=== PATIENT | female | born 1960 | race Caucasian/White ===

== ENCOUNTER 2018-09-21 09:54 | Inpatient (IN) | payer BC ==
[~2018-09-21 09:54] MED LIST: Iopamidol 370 76% 100 ML VIAL ONE
[2018-09-21 10:20] LABS: #Basophils 0.1 thou/uL (0.0-0.2); #Eosinphils 0.1 thou/uL (0.0-0.7); #Lymphocytes 1.7 thou/uL (1.20-3.40); #Monocytes 0.5 thou/uL (0.11-0.59); #Neutrophils 3.2 thou/uL (1.40-6.50); %Basophils 1.2 % (0.0-1.0); %Eosinophils 1.7 % (0.0-10.0); %Lymphocytes 31.1 % (21.0-51.0); %Monocytes 8.3 % (0.0-10.0); %Neutrophils 57.7 % (42.0-75.0); Hemoglobin 13.9 g/dL (12.0-16.0); Mean Corpuscular HGB CONC 33.4 g/dL (32.0-36.0); Mean Corpuscular Hemoglobin 29.3 pg (27.0-31.0); Mean Corpuscular Volume 87.7 fL (78.0-98.0); Mean Platelet Volume 7.9 fL (7.4-10.4); Platelet Count 233 thou/uL (130-400); RBC Distribution Width 11.7 % (11.5-14.5); Red Blood Cell (RBC) Count 4.76 mill/uL (4.20-5.40); White Blood Cell (WBC) Count 5.5 thou/uL (4.8-10.8)
[2018-09-21 10:32] LABS: ALT (SGPT) 19 U/L (8-55); AST (SGOT) 19 U/L (5-34); Albumin 4.7 g/dL (3.5-5.0); Alkaline Phosphatase 58 U/L (40-150); Anion Gap 14 mmol/L (10-20); BUN (Urea Nitrogen) 17 mg/dL (9.8-20.1); Bilirubin, Total 0.6 mg/dL (0.2-1.2); Calc. Creatinine Clearance 0 mL/min (70-130); Calcium 9.3 mg/dL (7.8-10.44); Carbon Dioxide 24 mmol/L (22-29); Chloride 106 mmol/L (98-107); Estimated GFR-MDRD 83; Globulin 3.2 g/dL (2.4-3.5); Glucose 94 mg/dL (70-105); Lipase 25 U/L (8-78); Potassium 4.1 mmol/L (3.5-5.1); Protein, Total 7.9 g/dL (6.0-8.3); Sodium 140 mmol/L (136-145)
[2018-09-21 11:02] LABS: PTT 30.5 SEC (22.9-36.1); Prothrombin Time 12.8 SEC (12.0-14.7)
--- NOTE | 2018-09-21 11:08 | CT ---
CT ABDOMEN AND PELVIS WITHOUT CONTRAST: History: Abdominal pain. Comparison: None. FINDINGS: Lung bases are clear. No pericardial effusion. There is a diverticulum in the second portion of the duodenum. Normal proximal small bowel rotation. No nephroureterolithiasis or hydroureteronephrosis. No secondary evidence of a recently passed stone. There has been subtle enlargement and inflammation surrounding the inferior mesenteric artery, axial image 50, with punctate internal increased density. This may reflect an inferior mesenteric artery th rombosis. This evaluation is limited without intravenous contrast. No evidence for acute diverticulitis. IMPRESSION: 1. No evidence for acute diverticulitis. 2. No nephroureterolithiasis or hydroureteronephrosis. No secondary evidence of recently passed stone . 3. Focal enlargement with subtle increased density within the inferior mesenteric artery, axial image 50, with adjacent inflammation may represent inferior mesenteric artery thrombosis although evaluati on limited without intravenous contrast. Arteritis is also a possibility. CODE: ROSI POS: ROSALBA
[2018-09-21 11:37] LABS: Bilirubin Negative (Negative); Blood, Urine Negative (Negative); Clarity Clear (Clear); Glucose, Urine (Dipstick) Negative (Negative); Leukocyte Negative (Negative); Nitrite Negative (Negative); Protein, Urine (Dipstick) Negative (Neg-Trace); Specific Gravity, Urine 1.015 (1.005-1.030); Urobilinogen 0.2 mg/dL (0.2-1.0)
[2018-09-21 13:36] VITALS: BMI 27.3
[2018-09-21] MEDS ORDERED: Ondansetron ODT 4 MG TAB SL PRN (13:55)
[2018-09-21] MEDS ORDERED: Sodium Chloride 0.9% 1,000 ML IV SCH (13:55)
[2018-09-21] MEDS ORDERED: HYDROcodone/Acetaminophen 7.5/325 mg Tablet PO PRN (15:35)
--- NOTE | 2018-09-21 15:42 | CON ---
DATE OF CONSULTATION: 09/21/2018 REASON FOR CONSULTATION: Abdominal pain. CONSULTING PHYSICIAN: Dr. Syed Marrero. HISTORY OF PRESENT ILLNESS: The patient is a 57-year-old female with past medical history of hyperte nsion, diverticulitis, depression and possible TIAs presenting with complaints of abdominal pain. Sh e states that she was in her usual state of health until approximately 1 week ago when she experience d the acute onset of lower abdominal pain located primarily in the left lower quadrant, right lower q uadrant and suprapubic regions. The pain was characterized as a constant aching type sensation. It would radiate to the left and right flank, and reaches severity of approximately 8/10. The pain was worse with initiation of urination and/or having a bowel movement, but would ultimately get better af ter having with either urinating or having a bowel movement. It would also get minimally better with the use of pain medications. During this time period, she has been having approximately 1 soft/oly d bowel movement per day with no difficulty with defecation. Given the increased severity of this pa in, it prompted her to seek healthcare assistance at [facility]. She was ultimate ly diagnosed with diverticulitis and given a prescription for both ciprofloxacin and Flagyl. With th e administration of these medications, they did not provide any symptom relief that ultimately nika t her to the [facility]. Associated symptoms with her abdominal pain include subjective chills an d darker colored stools (but not black). She currently denies any nausea, vomiting, fever, odynophag ia, dysphagia, change in bowel habits, GI bleeding, sudden change in vision, increased joint pains or new rashes. Of note, the patient states that this occurred approximately 1 month ago, but was fairl y self-limiting and resolved spontaneously without intervention. Also, of note, the patient was diagnosed with TIAs approximately 4-5 years ago when she experienced d ecreased sensation and inability to move limbs on one side of her body. She underwent extensive work up at that time with no clear etiology for these changes elucidated. REVIEW OF SYSTEMS: A 10-category review of systems was obtained with all responses negative except f or the pertinent positives as listed in the HPI. PAST MEDICAL HISTORY: As per HPI. PAST SURGICAL HISTORY: Hysterectomy, appendectomy, x2, breast augmentation. FAMILY HISTORY: Father diagnosed with colon cancer in his late 60s. Maternal aunts also diagnosed w ith colon cancer in the past. SOCIAL HISTORY: She denies any tobacco, alcohol or illicit drug use. OUTPATIENT MEDICATIONS: Lisinopril and sertraline. ALLERGIES: No known drug allergies. PHYSICAL EXAMINATION: VITAL SIGNS: Temperature 98, pulse 61, blood pressure 145/85, respiratory rate 16, satting 97% on ro om air. GENERAL: The patient was lying in bed in no acute distress. Alert and oriented x4. NECK: Supple. No JVD noted. No supraclavicular or cervical chain lymphadenopathy noted either. CARDIOVASCULAR: Regular rate and rhythm with no discernible murmurs, gallops or rubs. RESPIRATORY: Clear to auscultation bilaterally with no discernible wheezes or rales. ABDOMEN: Normoactive bowel sounds, soft, nondistended. Tenderness to palpation in the right upper q uadrant and right lower quadrant, suprapubic and left lower quadrants. EXTREMITIES: No cyanosis, clubbing or edema. LABORATORY DATA: CBC with white blood cell count of 5.5, hemoglobin 13.9, hematocrit 41.8 and platel ets 233. INR 1.0. Chemistry with sodium of 140, potassium 4.1, chloride 106, CO2 24, BUN 17, creati nine 0.72, glucose 94, AST 19, ALT 19, alkaline phosphatase 58, total bilirubin 0.6, albumin 4.7 and lipase 25. Urinalysis negative for infection. IMAGING DATA: CT of the abdomen and pelvis was obtained on 09/21/2018 which showed subtle enlargemen t and inflammation surrounding the inferior mesenteric artery with punctate internal increased densit y which may reflect an inferior mesenteric artery thrombosis. There was no evidence of acute diverti culitis based on the CT scan, but was a noncontrasted study. There is also no evidence of hydrourete ronephrosis or hydronephrosis. ASSESSMENT AND PLAN: The patient is a 57-year-old female with past medical history of hypertension, diverticulitis, depression and possible TIAs in the past, presenting with increased abdominal pain an d imaging concerning for an inferior mesenteric artery thrombosis and/or possible arteritis. MESENTERIC ARTERY THROMBOSIS: The patient is presenting with acute onset of lower quadrant abdominal pain over the last week that was associated with subjective chills. With this pain, it was characte rized as a constant aching type sensation and would radiate to the left and right flanks and reaches severity of approximately 8/10. She was initially seen at [facility] and diagnose d with acute diverticulitis and given prescriptions for both ciprofloxacin and Flagyl. However, she experienced no symptom relief while taking these medications. 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 With the presence of a possible thrombosis within the inferior mesenteric artery, a coagulopathic state may b e contributing to current problem in addition to either vascular disease or arteritis type condition creating or contributing to her current abdominal pain. At this time, she has had a colonoscopy in 0 07/2012 with normal findings at that time and does not have a current clinical history consistent with a GI malignancy (even though her father was diagnosed with colon cancer in 60s that places her at av erage risk), a full medicine workup should be initiated at this time for evaluation of possible vascu litis versus arteritis contributing to this mesenteric artery thrombosis which may ultimately require biopsy of the affected vessels in order to make the diagnosis. However, at this time there is no re ason for Gastroenterology involvement in this particular condition given a more vascular etiology of her abdominal pain. RECOMMENDATIONS: 1. We would pursue an autoimmune versus vasculitis workup to include antinuclear antibody, complemen t and ANCA testing as well as serologies for lupus for further evaluation of a possible vasculitis. 2. Would defer to primary inpatient medicine team for further evaluation of this condition. 3. Pain control per primary team. Given the lack of indications for GI involvement at this time, we will sign off. Please call with an y additional questions.
[2018-09-21] MEDS: Sodium Chloride 0.9% 1,000 ML IV SCH ×2 (16:13→20:00)
--- NOTE | 2018-09-21 16:19 | HP ---
DATE OF SERVICE: 09/21/2018 HISTORY OF PRESENT ILLNESS: This is a 57-year-old white female who presents with abdominal pain. Th e patient has been relatively healthy. It has been a few years since she has seen Dr. Anselmo Alonso. She does have a history of hypertension and depression. Approximately 4 years ago, she has an epis ode of many TIAs. She was experiencing left-sided weakness and slurred speech. This lasted for appr oximately 1 month. She does not recall how she was treated, but her symptoms resolved and she return ed to normal. She had done well until approximately 4-5 days ago, she began experiencing abdominal p ain. This actually began on Tuesday. She had some nausea, but no vomiting. Over the weekend, the pa in became more severe and on Tuesday went to [facility] and was given antibiotics for suspected div erticulitis. She did have a colonoscopy in 2013, which was unremarkable according to her. Over the past several days, her abdominal pain has persisted and has become worse. She did have a soft bowel movement this morning. However, she also complains of pain upon urination. She describes her lower abdominal pain is a constant dull ache. She was seen in the emergency room and a possible inferior m esenteric thrombosis was noted. No evidence of diverticulitis was noted. PAST MEDICAL HISTORY: Hypertension and depression. PAST SURGICAL HISTORY: Include x2, appendectomy, breast lumpectomy, breast augmentation, r emoval of a cyst on her neck, and a complete total abdominal hysterectomy and bilateral salpingo-ooph orectomy. FAMILY HISTORY: Includes father with colon cancer, two aunts with colon cancer, brother with prostat e cancer, brother with kidney cancer. There is no family history of any rheumatoid arthritis, lupus, clotting disorders, or seizure disorders. MEDICATIONS: Zoloft 50 mg daily and lisinopril/HCTZ 20/12.5 daily. REVIEW OF SYSTEMS: As above. ALLERGIES: None. SOCIAL HISTORY: She is . She has 1 daughter. She did have twins that at a young age. She also has 1 adopted niece at home. PHYSICAL EXAMINATION: VITAL SIGNS: Temperature 98, pulse 61, respirations 16, pulse ox 97, blood pressure 145/85. GENERAL: The patient is in moderate pain from her abdomen. HEENT: Clear. Mucous membranes are dry. NECK: Supple. HEART: Regular rate and rhythm. LUNGS: Clear. ABDOMEN: Soft, normal bowel sounds, but diffuse lower abdominal tenderness to palpation. No guardin g or rebound noted. LABORATORY DATA: White count 5.5, H and H 13.9 and 41.8, and platelets 233. INR 1.0. Electrolytes normal. Creatinine 0.72, BUN 17, glucose 94. UA negative, specific gravity 1.015, no ketones. CT a bdomen and pelvis, no evidence of acute diverticulitis. No kidney stones or urinary pathology, focal enlargement within the inferior mesenteric artery with adjacent inflammation consistent with inferio r mesenteric artery thrombosis. ASSESSMENT: 1. 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 The patient did saavedra ve that history 4 years ago of a possible many TIAs. Must consider some type of thrombosis disorder. 2. Dehydration. 3. Headache. 4. Hypertension. 5. Nausea. 6. History of depression. PLAN: 1. We will order a thrombosis panel as well as an antiphospholipid panel. Rule out some type of pro tein C, protein S, or antithrombin III disorder. 2. Lovenox 1 mg/kg q.12. 3. Consult General Surgery, Dr. Scruggs. 4. Morphine for pain. 5. Zofran for nausea. 6. Pepcid IV q.12. 7. N.p.o. for now.
[2018-09-21] MEDS: Morphine 2 MG/ML SYRINGE SLOW IVP PRN ×2 (16:37→21:56)
[2018-09-21] MEDS: Ondansetron PF 4 MG/2 ML Vial IVP PRN ×2 (16:37→22:03)
[2018-09-21 17:42] LABS: Prothrombin Time 13.1 SEC (12.0-14.7)
[2018-09-21 17:44] LABS: D-Dimer Test 0.34 *mcg/mL (0.27-0.43)
--- NOTE | 2018-09-21 18:23 | CON ---
DATE OF CONSULTATION: 09/21/2018 CHIEF COMPLAINT: Vasculitis. HISTORY OF PRESENT ILLNESS: This is a 57-year-old female with a few day history of severe lower abdo roly pain, seen at [facility], diagnosed with diverticulitis and was sent home on antibiotics. The pain worsened, seen here, where initial CT scan showed evidence of vascular disease in the pelvi s. She has had a CT angio, which showed potential vasculitis of the inferior mesenteric artery and s uperior rectal artery. She is admitted to her primary care physician. She feels better, slightly im proved now. No nausea or vomiting associated with this. No diarrhea, no blood in stool. She has ne attila had any symptoms like this before; however, she does have a history of a few TIAs that resolved w [facility] permanent issue. She was never given a reason for why she would have TIA. She is a nonsmoker , never smoked. No alcohol, no other drugs. PAST MEDICAL HISTORY: Hypertension, depression, and TIA. PAST SURGICAL HISTORY: , appendectomy, augmentation of breast, hysterectomy, salpingo-oopho rectomy. FAMILY HISTORY: Father with colon cancer. Two aunts with colon cancer. No family history of autoim mune disease. MEDICINES: Zoloft, lisinopril, hydrochlorothiazide. ALLERGIES: No known drug allergies. SOCIAL HISTORY: with one daughter. REVIEW OF SYSTEMS: Ten-system review of systems is otherwise negative unless described above. PHYSICAL EXAMINATION: VITAL SIGNS: Blood pressure is 146/78, pulse 60, respirations 18, temperature 97.7. HEENT: Sclerae are anicteric. Oropharynx is clear. NECK: No lymphadenopathy. CHEST: Clear. HEART: Regular rate and rhythm. ABDOMEN: Soft. She is tender in the lower abdomen with localized guarding, without rebound tenderne ss. LABORATORY DATA: White blood cell count is normal, H and H normal. No bands, no left shift. CT ang io shows there is vasculitic type changes of the inferior mesenteric artery, sigmoid artery, and supe rior rectal artery. Please note there is no evidence of thrombosis or clot. ASSESSMENT: Abdominal pain with CT angio showing vasculitis, no thrombosis of some pelvic mesenteric blood vessels. PLAN: Admit for supportive care, vasculitis workup, autoimmune workup. This likely represents a vas culitis which rarely requires surgical intervention. Please call if symptoms worsen, she can probabl y be started on a liquid diet tomorrow if she is feeling better. No plans for surgery.
[2018-09-21] MEDS: Famotidine/PF 20 mg/2ml Vial SLOW IVP SCH (20:44)
[2018-09-21] MEDS: Enoxaparin Sodium 80 MG/0.8 ML SYRINGE SC SCH (20:45)
[2018-09-22] MEDS: Sodium Chloride 0.9% 1,000 ML IV SCH ×4 (02:58→17:57)
[2018-09-22] MEDS ORDERED: Ondansetron ODT 4 MG TAB SL PRN (04:02)
[2018-09-22] MEDS: Ondansetron PF 4 MG/2 ML Vial IVP PRN ×3 (04:17→16:42)
[2018-09-22] MEDS: Morphine 2 MG/ML SYRINGE SLOW IVP PRN (04:18)
[2018-09-22 06:01] LABS: #Basophils 0.1 thou/uL (0.0-0.2); #Eosinphils 0.1 thou/uL (0.0-0.7); #Lymphocytes 1.6 thou/uL (1.20-3.40); #Monocytes 0.4 thou/uL (0.11-0.59); #Neutrophils 3.9 thou/uL (1.40-6.50); %Eosinophils 1.3 % (0.0-10.0); %Lymphocytes 26.3 % (21.0-51.0); %Monocytes 7.2 % (0.0-10.0); %Neutrophils 64.3 % (42.0-75.0); Hemoglobin 12.4 g/dL (12.0-16.0); Mean Corpuscular Hemoglobin 29.8 pg (27.0-31.0); Mean Platelet Volume 8.8 fL (7.4-10.4); Platelet Count 271 thou/uL (130-400); RBC Distribution Width 11.8 % (11.5-14.5); Red Blood Cell (RBC) Count 4.15 mill/uL (4.20-5.40)
[2018-09-22 06:13] LABS: ALT (SGPT) 15 U/L (8-55); AST (SGOT) 19 U/L (5-34); Albumin 3.9 g/dL (3.5-5.0); Alkaline Phosphatase 50 U/L (40-150); Anion Gap 14 mmol/L (10-20); BUN (Urea Nitrogen) 9 mg/dL (9.8-20.1); Bilirubin, Total 0.5 mg/dL (0.2-1.2); Calc. Creatinine Clearance 106 mL/min (70-130); Calcium 8.2 mg/dL (7.8-10.44); Carbon Dioxide 21 mmol/L (22-29); Chloride 108 mmol/L (98-107); Estimated GFR-MDRD Greater than 90; Globulin 2.7 g/dL (2.4-3.5); Glucose 82 mg/dL (70-105); Potassium 3.6 mmol/L (3.5-5.1); Protein, Total 6.6 g/dL (6.0-8.3); Sodium 139 mmol/L (136-145)
[2018-09-22] MEDS: Famotidine/PF 20 mg/2ml Vial SLOW IVP SCH ×2 (08:47→20:05)
[2018-09-22] MEDS: Enoxaparin Sodium 80 MG/0.8 ML SYRINGE SC SCH ×2 (08:47→20:05)
[2018-09-22 09:20] LABS: Protein C Activity 134 % (78-152)
[2018-09-22] MEDS: Butorphanol Tartrate 1 MG/ML VIAL SLOW IVP SCH ×4 (09:44→16:42)
[2018-09-22] MEDS ORDERED: Lisinopril/Hydrochlorothiazide 20 mg/12.5 mg Tablet PO SCH (14:00)
[2018-09-22] MEDS: Acetaminophen 325 MG TAB PO PRN ×2 (14:42→20:05)
--- NOTE | 2018-09-22 19:04 | CON ---
DATE OF CONSULTATION: 09/22/2018 HISTORY OF PRESENT ILLNESS: This is a 57 years old female who started to have abdominal pa in last week, Tuesday. She was initially evaluated at [facility] and was clinical ly diagnosed diverticulitis and sent home on Cipro and Flagyl. This did not relieve her pain and she was admitted to [facility] on 09/21/2018. Her abdominal pain started in lower part of t he abdomen and was mild to moderate in the beginning; however, it became up to level 8 in less than 2 4 hours. The patient had a coagulase panel drawn and has been started on Lovenox. She was also give n morphine which causes nausea. Currently, she is receiving [place] for pain relief. The last tablet of [place] was approximately 4 hours ago. The patient's pain has markedly improved and currently she i s having level 3 pain. She denies bloody stools although she had one dark stool. She denies fever. She denies diffuse muscle and joint pain. She does admit of some stiffness in the proximal joints o f right thumb. Her brother recently had a stroke. The patient herself had TIA approximately four ye ars ago. She had 3-4 episodes and then they resolved without any intervention. She denies past hist ory or family history of phlebitis. CURRENT MEDICATIONS: Hydrocodone, Lovenox 80 mg twice a day, Pepcid, Prinzide, Zofran, Zoloft 50 mg p.o. daily. PAST MEDICAL HISTORY: Hypertension, depression and TIA. PAST SURGICAL HISTORY: Include x2, appendectomy, breast lumpectomy 20 years ago, total abd ominal hysterectomy and bilateral salpingo-oophorectomy. FAMILY HISTORY: Father had colon cancer. Two aunts had colon cancer. Brother with prostate cancer and kidney cancer. SOCIAL HISTORY: The patient is a never smoker. PHYSICAL EXAMINATION: GENERAL: Patient is alert and oriented and appears comfortable at this time. VITAL SIGNS: Temperature 97.3, pulse 72 and blood pressure 129/71. HEENT: Unremarkable. EYES: Extraocular movements intact. Pupils equal in size. NECK: No thyromegaly. LYMPH NODES: Not palpable in cervical, supraclavicular, axillary and inguinal areas. SKIN: No petechiae. No purpuric spots. CHEST: No deformity. Percussion notes equal bilaterally. Breath sounds vesicular without rales or rhonchi or pleural rub. CARDIOVASCULAR SYSTEM: PMI not displaced. Rhythm regular. S1, S2 normal. No murmur or pericardial rub. ABDOMEN: Soft. Bowel sounds are absent. There is mild to moderate tenderness in the right lower qu adrant and the suprapubic area. SPINE: No deformity or tenderness. EXTREMITIES: No calf tenderness. BREASTS: Without mass or nipple retraction. ABDOMEN: Soft. Bowel sounds are absent. There is mild to moderate tenderness in the right lower qu adrant and the suprapubic area. LABORATORY DATA: CBC shows WBC 6000, hemoglobin 12.4 and a platelet count of 271,000. Differential showed 64.3% neutrophils, 26.3% lymphocytes, and 7.2% monocytes. Sed rate is 19. Comprehensive meta bolic profile is essentially within normal limits. C-reactive protein is elevated at 0.84. Protime 12.8, PTT 30.5. D-dimer is normal at 0.34. Protein C, protein S and antithrombin III are normal. R est of the coagulation profile is pending. IMAGING STUDIES: CT scan of abdomen and pelvis without contrast showed focal enlargement with subtle increased density within the inferior mesenteric artery suggestive of local inflammation and possibl y mesenteric artery thrombosis. CT angio of the abdomen showed marked wall thickening with narrowing of the lumen for a length of 1.5 cm distal to the region of the inferior mesenteric artery extending 4-7 cm. This was felt to be suggestive of vasculitis with approximately 50% narrowing of the lumen involving 7 cm segment of the inferior mesenteric artery. There was near complete narrowing of a sin gle branch of the sigmoid artery as well as inflammation extending along the superior rectal artery. 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 The patient's pain has improved either from pain medicine an d/or from anticoagulation. Bowel sound is bothersome, although there is only mild tenderness over th e abdomen. I had a lengthy discussion with the patient and Dr. Dumont and we feel that she should be transferred to [facility] for higher level of care in regards to vasculitis. Transfer center has be en requested to arrange for the transfer. Thanks very much for allowing me to participate in this patient's care.
[2018-09-22 19:44] VITALS: BP 113/71
[2018-09-22] MEDS ORDERED: Butorphanol Tartrate 1 MG/ML VIAL SLOW IVP SCH (21:00)
[2018-09-22 22:21] VITALS: TEMP 97.3
[2018-09-23] MEDS ORDERED: Lisinopril/Hydrochlorothiazide 20 mg/12.5 mg Tablet PO SCH (09:00)
--- NOTE | 2018-09-25 08:18 | CT ---
5CT ANGIOGRAM ABDOMEN AND PELVIS WITH CONTRAST: History: Abnormal findings on noncontrast exam. Comparison: CT abdomen and pelvis without contrast, same day. FINDINGS: The aortic contour is non-aneurysmal. The celiac trunk, splenic artery, hepatic artery and left hepat ic arteries are intact. The superior mesenteric artery is intact. There is no significant calcific pl aque. The origin of the inferior mesenteric artery is patent. Just distal to the origin of the inferi or mesenteric artery approximately 1.5 cm there is marked wall thickening with narrowing of the lumen . There is approximately 50% narrowing of the lumen at the anterior mesenteric artery for a length of 7 cm with wall thickening as well as periarterial inflammation. There is also a focal high grade sandra rowing of the branch of the inferior mesenteric artery feeding the sigmoid colon with minimal periphe ral flow. Inflammation extends to the level of the pelvis from a branch of the inferior mesenteric ar [place]. Renal arteries are patent. There is also some thickening and inflammation along the superior rectal artery. IMPRESSION: Findings suggestive of a vasculitis with approximately 50% narrowing of the lumen and a 7 cm segment of the inferior mesenteric artery with near complete narrowing of a single branch of the sigmoid josé ry as well as inflammation extending along the superior rectal artery. No evidence for acute embolism . Work up for vasculitis in this patient would likely be beneficial, especially Takayasu arteritis. POS: ROSALBA
[2018-09-25 12:06] LABS: ANA Symphony (Qualitative) Negative (Negative); dsDNA IgG Antibody 2.4 IU/mL (<10 Negative)
[2018-09-25 14:11] LABS: beta-2-Glycoprotein I IgA Ab 0.6 U/mL (<7 Negative); beta-2-Glycoprotein I IgG Ab 1.3 U/mL (<7 Negative); beta-2-Glycoprotein I IgM Abs Less than 2.9 U/mL (<7 Negative)
[2018-09-25 14:19] LABS: Cardiolipin IgA Ab 1.3 APL-U/mL (<14 Negative)
[2018-09-25 14:20] LABS: Cardiolipin IgM Ab 5.5 MPL-U/mL (<10 Negative); EliA APS New Method **** NEW METHOD ****
[2018-09-26 10:50] LABS: Factor IX Test 125.3 % ACTIVE (56-149); Factor VIII Test 207.3 % ACTIVE (56-157)
[2018-09-26 12:10] LABS: DRVVT Confirm 34.5; DRVVT Screen 33.5 SEC (20-50); HEX PHOS LA Tube 2 57.3 SEC; Hexagonal Phospholipid Neut 4.7 SEC (0-8.0)
[2018-09-26 14:18] LABS: Cytoplasmic (C-ANCA) <1:20 titer (Neg:<1:20); Perinuclear (P-ANCA) <1:20 titer (Neg:<1:20)
== END 2018-09-22 23:19 | disposition short-term general hospital (02) | DRG 395 ==
LOC: SCSER 09:54 → T4-B 11:56
PROVIDERS: ADMIT Family Medicine; ATTEND Family Medicine
DX: K55.1 Chronic vascular disorders of intestine (principal); I10 Essential (primary) hypertension; F32.9 Major depressive disorder, single episode, unspecified; R51 Headache; Z86.73 Personal history of transient ischemic attack (TIA), and cerebral infarction without residual deficits
CPT/HCPCS: 36415; 74175; 74176; 80053; 81003; 81240; 81241; 83090; 83605; 83690; 85025; 85240; 85250; 85300; 85303; 85305; 85307; 85379; 85598; 85610; 85613; 85652; 85730; 86038; 86140; 86146; 86147; 86225; 86256; 96361; 96374; 96376; J0595; J1650; J2270; J2405; S0028